=== PATIENT | male | born 1995 | race Caucasian/White ===

== ENCOUNTER 2020-02-27 03:49 | Observation (INO) ==
[2020-02-27] MEDS ORDERED: Naloxone 0.4 MG/ML INJ IVP PRN (07:16)
[2020-02-28 07:32] VITALS: BP 112/70
== END 2020-02-28 10:38 | disposition home or self-care (01) ==
LOC: 3BNU → SUATTDRO 05:53
PROVIDERS: ADMIT Internal Medicine; ATTEND Internal Medicine